=== PATIENT | male | born 1955 | race Caucasian/White ===

== ENCOUNTER 2019-05-19 20:57 | Emergency (ER) | payer BC ==
[2019-05-19 21:09] VITALS: BMI 26.2
[2019-05-19] MEDS ORDERED: ASPIRIN 81 MG CHEWABLE TABLETS PO ONE ×2 (21:09→21:15)
[2019-05-19] MEDS ORDERED: SODIUM CHLORIDE 1,000 ML IV STA (21:09)
[2019-05-19] MEDS ORDERED: ASPIRIN 81 MG CHEWABLE TABLETS ONE (21:12)
[2019-05-19] MEDS ORDERED: HEPARIN NA (PORCINE) 5,000 UNITS/ML 1ML VIAL IVPUSH PRN (21:13)
[2019-05-19] MEDS ORDERED: CLOPIDOGREL BISULFATE 300 MG TABLET ONE (21:13)
[2019-05-19] MEDS ORDERED: CLOPIDOGREL BISULFATE 300 MG TABLET PO ONE (21:13)
--- NOTE | 2019-05-19 21:15 | PDOC ---
History of Present Illness - General Stated Complaint: CHEST/BACK PAIN Time Seen by Provider: 05/19/19 21:05 History Source: Patient Exam Limitations: No Limitations - History of Present Illness Initial Comments: 05/19/19 21:08 [id number] high-risk CAD patient with carotid stenosis, DM, HTN; presents with chest and back pain. Started ~5 hours ago in epigastric region now migrating to his chest and radiating straight backward. He states is supposed to be taking ASA daily but non-adherent. Has Rx metoprolol and metformin. States he feels lightheaded. Past History - Past Medical History Allergies/Adverse Reactions: Allergies Allergy/AdvReac Type Severity Reaction Status Date / Time No Known Allergies Allergy Verified 05/19/19 21:09 Review of Systems - Review of Systems Able to Perform ROS?: Yes Comments:: 05/19/19 21:29 GEN: malaise, no fever, chills, night sweats, generalized weakness, or unintentional weight change HEENT: no ear pain, congestion, sore throat, rhinorrhea, nosebleed, vision change, or eye pain CV: chest pain, no palpitations, lightheadedness, syncope, edema, or exercise intolerance RESP: no cough, wheezing, or SOB GI: epigastric abdominal pain, no nausea, vomiting, diarrhea, constipation, appetite change, or white/black/bloody stool : no dysuria, hematuria, frequency, incontinence, retention, pruritis, bleeding, or discharge MSK: back pain, otherwise no muscle weakness or pain, no muscle wasting, no joint swelling or pain NEURO: no headache, seizure, vertigo, imbalance, numbness, tingling, focal weakness, or difficulty walking/talking PSYCH: no insomnia, behavior change, SI, HI, or substance use SKIN: no prutitis, excessive dryness, jaundice, rash, cuts, or unexplained bruises ROS otherwise negative except as noted in HPI *Physical Exam - Vital Signs Last Vital Signs Temp Pulse Resp BP Pulse Ox 98.1 F 83 19 137/91 99 05/19/19 21:04 05/19/19 21:04 05/19/19 21:04 05/19/19 21:04 05/19/19 21:04 Heart Score/ECG Review - History History: Highly suspicious - Electrocardiogram EKG: Significant ST-depression - Age Age: 45-65 - Risk Factors Risk Factors Heart Score: Yes Hx Hypercholesterolemia, Yes Hx Hypertension, Yes Hx Diabetes, Yes Positive family hx of cardiac disease Based on the list above the patient has:: >/=3 risk factors or Hx atherosclerotic disease #1 05/19/19 20:52 Sinus rhythm, rate 90, anterolateral STEMI given pattern of CYNTHIA in V1-V6 and I and aVL, also STD in III and aVF #2 05/19/19 21:25 Sinus rhythm, rate 68, persistent anterolateral STEMI given pattern of CYNTHIA in V1 -V6 and I and aVL, also STD in III and aVF ED Treatment Course - LABORATORY CBC & Chemistry Diagram: 05/19/19 21:10 05/19/19 21:10 - RADIOLOGY Radiology Studies Ordered: Category Date Time Status CHEST X-RAY PORTABLE* [RAD] Stat Radiology 05/19/19 21:09 Ordered - Medications Given in the ED: ED Medications Discontinued Medications Generic Name Dose Route Start Last Admin Trade Name Freq PRN Reason Stop Dose Admin Aspirin 162 mg 05/19/19 21:09 05/19/19 21:16 Asa - PO 05/19/19 21:10 162 mg ONCE ONE Administration Aspirin 162 mg 05/19/19 21:15 05/19/19 21:16 Asa - PO 05/19/19 21:16 162 mg ONCE ONE Administration Clopidogrel Bisulfate 600 mg 05/19/19 21:13 05/19/19 21:15 Plavix - PO 05/19/19 21:14 600 mg ONCE ONE Administration Medical Decision Making - Critical Care Time Total Critical Care Time (minutes): 40 Critical Care Statement: The care of this patient involved high complexity decision making to prevent further life threatening deterioration of the patient 's condition and/or to evaluate & treat vital organ system(s) failure or risk of failure. - Medical Decision Making 05/19/19 21:11 Adult male Pt with carotid stenosis p/w chest pain. Initial Vital Signs Temp Pulse Resp BP Pulse Ox 98.1 F 83 19 137/91 99 05/19/19 21:04 05/19/19 21:04 05/19/19 21:04 05/19/19 21:04 05/19/19 21:04 Exam: As noted in Physical Exam section. DDX IBNLT: very likely ACS, as patient's EKG shows STEMI. Less likely LBBB with secondary changes. Less likely pericarditis, tamponade, aortic dissection, AAA, PTX, PE, esophageal tear, esophagitis (e.g. pill, infectious), esophageal stricture, esophageal FB, gastritis, PUD, pancreatitis, cholecystitis, cholangitis, colitis, bowel perforation, PNA/bronchitis, pleurisy, pleuritis, MVP, pulmonary HTN, musculoskeletal, panic/anxiety, etc. W/U ordered: CBCD CMP Mg Phos Lipase Troponin CK CKMB Coags T&S Blood gas UA UCx EKG CXR. TX ordered: monitor, ASA 324, heparin, plavix, IVF EKG: Reviewed; results as noted in ECG Review section. CXR: Labs: The Pt is unsafe for discharge at this time. They require further hospital observation, workup, and treatment because they have EKG c/f STEMI. Transfer center called and connected with admitting provider. Pt to be transferred to: [facility] [place] Pt accepted in transfer to: [facility] Patient informed and consents to transfer. Transfer paperwork completed and signed by all indicated parties. 05/19/19 21:23 EMS crew arrives and transfers Pt to ambulance without issue. Code red ALS and patient has gotten ASA 324, Heparin, Plavix. Discharge - Discharge Information Problems reviewed: Yes Clinical Impression/Diagnosis: STEMI (ST elevation myocardial infarction) Qualifiers: Involved coronary artery: unspecified coronary artery Qualified Code(s): I21.3 - ST elevation (STEMI) myocardial infarction of unspecified site Condition: Guarded Disposition: TRANSFER ACUTE CARE/OTHER HOSP - Follow up/Referral - Patient Discharge Instructions - Post Discharge Activity - Transfer to Acute Care Facility Receiving Facility Name: [facility] Accepting Physician:: Chelsea
--- NOTE | 2019-05-19 21:20 | PDOC ---
Attending Attestation - Resident Resident Name: Kuo,Mary - ED Attending Attestation I have performed the following: I have examined & evaluated the patient, The case was reviewed & discussed with the resident, I agree w/resident's findings & plan - HPI HPI: 05/19/19 21:16 Pt comes with epigastric pain that started at 5PM today; now the pain is in the Mid sternum. Pain described as pressure; pain is evolving; Pt has a STEMI. He is supposed to be on ASA, but he didn't take it today. Pt has no SOB and his BP is controlled. He was told by his doctors that he has R carotid 20% occlusion. 05/19/19 21:36 Pt went to [facility] with grandkids today; he ascribed the epigastric pain to the fast food; was out of the house. Daughter was with him noticed he was pale and high BP. When he began to complain of CP, family brought him to the ER. - Physicial Exam PE: 05/19/19 21:17 Agree with resident exam - Medical Decision Making 05/19/19 21:17 STEMI called in to [id number]; we treated patient with ASA 324mg; plavix 600mg ; heparin 5000U and he will be transferred. Labs drawn and sent and a stat portable being done We are awaiting to hear back from cards cath team at [facility]. 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 05/19/19 21:32 Dr. FRANK attending accepts the patient to [facility] ER. 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
[2019-05-19] MEDS ORDERED: HEPARIN NA (PORCINE) 5,000 UNITS/ML 1ML VIAL ONE (21:26)
[2019-05-19 21:41] LABS: BASO % 0.3 % (0-2.0); EOS % 0.3 % (0-4.5); HEMATOCRIT 41.6 % (35.4-49); HEMOGLOBIN 14.6 GM/dL (11.7-16.9); MCH 30.7 pg (25.7-33.7); MCHC 35.1 g/dl (32.0-35.9); MEAN CELL VOLUME 87.3 fl (80-96); MEAN PLT VOLUME 8.2 fl (7.5-11.1); MONO % 4.1 % (3.8-10.2); NEUT % 87.3 % (42.8-82.8); PLATELET COUNT 309 K/MM3 (134-434); RBC 4.76 M/mm3 (4.00-5.60); RDW 13.1 % (11.9-15.9); WHITE BLOOD COUNT 19.5 K/mm3 (4.0-10.0)
[2019-05-19 21:46] LABS: ALBUMIN 4.2 g/dl (3.4-5.0); BILIRUBIN,TOTAL 0.5 mg/dL (0.2-1); BLOOD UREA NITROGEN 25.1 mg/dL (7-18); CALCIUM 9.7 mg/dL (8.5-10.1); CREATININE 1.2 mg/dL (0.55-1.3); MAGNESIUM 1.7 mg/dL (1.8-2.4); TOT PROT 7.2 g/dl (6.4-8.2)
[2019-05-19 21:54] VITALS: BP 135/89; PULSE 85; TEMP 98.3
[2019-05-19 22:00] LABS: INR 0.97 (0.83-1.09); PROTHROMBIN TIME (PATIENT) 11.4 SEC (9.7-13.0)
[2019-05-19 22:03] LABS: ACTIVATED PTT 27.8 SECONDS (25.2-36.5)
--- NOTE | 2019-05-20 10:03 | EKG ---
Test Reason : Blood Pressure : / mmHG Vent. Rate : 068 BPM Atrial Rate : 068 BPM P-R Int : 140 ms QRS Dur : 174 ms QT Int : 418 ms P-R-T Axes : 049 -79 057 degrees QTc Int : 444 ms NORMAL SINUS RHYTHM LEFT AXIS DEVIATION RIGHT BUNDLE BRANCH BLOCK SEPTAL INFARCT , AGE UNDETERMINED LATERAL INJURY PATTERN WITH ST ABNORMALITY ? ELEVATION ABNORMAL ECG NO PREVIOUS ECGS AVAILABLE Confirmed by NIDA YIP MD ([id number]) on 05/20/2019 10:02:49 AM Referred By: Confirmed By:NIDA YIP MD
--- NOTE | 2019-05-20 15:08 | EKG ---
Test Reason : Blood Pressure : / mmHG Vent. Rate : 087 BPM Atrial Rate : 087 BPM P-R Int : 142 ms QRS Dur : 110 ms QT Int : 392 ms P-R-T Axes : 056 -81 050 degrees QTc Int : 471 ms SINUS RHYTHM WITH OCCASIONAL PREMATURE VENTRICULAR COMPLEXES POSSIBLE LEFT ATRIAL ENLARGEMENT LEFT AXIS DEVIATION INCOMPLETE RIGHT BUNDLE BRANCH BLOCK ANTEROSEPTAL INFARCT , POSSIBLY ACUTE LATERAL INJURY PATTERN ST ELEVATION IN LATERAL LEADS ABNORMAL ECG NO PREVIOUS ECGS AVAILABLE Confirmed by THEODORA SANDS, NIDA ([id number]) on 05/20/2019 3:07:44 PM Referred By: Confirmed By:NIDA YIP MD
== END 2019-05-19 21:52 | disposition short-term general hospital (02) ==
LOC: JER 20:57
PROC: 3E0337Z Introduction of Electrolytic and Water Balance Substance into Peripheral Vein, Percutaneous Approach (ICD-10-PCS; principal; 2019-05-19)
PROC: 3E033GC Introduction of Other Therapeutic Substance into Peripheral Vein, Percutaneous Approach (ICD-10-PCS; 2019-05-19)
DX: I21.3 ST elevation (STEMI) myocardial infarction of unspecified site (principal); I65.29 Occlusion and stenosis of unspecified carotid artery
CPT/HCPCS: 36415; 71045-TC-FY; 80053; 82550; 82553; 83735; 84484; 85025; 85610; 85730; 93005; 93010; 99285-25; J1644; J7030